=== PATIENT | male | born 1965 | race Caucasian/White ===

== ENCOUNTER 2022-12-28 20:55 | Inpatient (IN) | payer BC, SELFPAY ==
--- NOTE | 2022-12-28 20:56 | XR_ITS ---
PROCEDURE INFORMATION: Exam: XR Chest Exam date and time: 12/28/2022 9:47 PM Age: 57 years old Clinical indication: Other: Nstemi TECHNIQUE: Imaging protocol: Radiologic exam of the chest. Views: 1 view. Total images: 1 COMPARISON: No relevant prior studies available. FINDINGS: Lungs: Unremarkable. No consolidation. No pulmonary vascular congestion or edema. Pleural spaces: Unremarkable. No pleural effusion. No pneumothorax. Heart/Mediastinum: Unremarkable. No cardiomegaly. No mediastinal widening or hilar enlargement. Bones/joints: Unremarkable. IMPRESSION: No radiographically acute cardiopulmonary process.
--- NOTE | 2022-12-28 21:08 | ECG_ITS ---
APPROVED REPORT Exam: Resting ECG HR:55 bpm ECG Measurements Heart Rate 55 AXES PA 179 P 46 QRSd 96 QRS 7 QT 419 T 3 QTc 409 Conclusion SINUS BRADYCARDIA O/w normal ecg ABNORMAL ECG UNCONFIRMED REPORT Electronically signed by : Endy Marquez MD 12/29/2022 20:21:05
[2022-12-28 21:13] VITALS: BMI 30.7
[2022-12-28 21:20] VITALS: BP 89/46; PULSE 59; RESP 18; O2SAT 95
[2022-12-28 22:00] VITALS: BP 99/50; PULSE 53; RESP 18; O2SAT 97
--- NOTE | 2022-12-28 22:09 | EXP.HP ---
History of Present Illness *Admission Date: 12/28/22 *Reason for visit:: NSTEMI *History of present illness: 57 year old male pt presented to [facility] as a direct transfer from [facility] for NSTEMI. PMHX of HTN, BPH, tobacco abuse, and alcohol use. Pt reports he smokes alot and drinks more than a [address] Murphy consulted hospitalist service for admission. I admitted the pt to the step down unit. I also spoke with Dr. Hernandez at [facility] ED and informed him that I accepted the pt to the hospitalist service and he was to be admitted as step down. He arrives from [facility] ED via EMS to the medical floor. He is alert and oriented x 4. He denies any current chest pain but reports fatigue. He states his CP started yesterday. The CP radiated into his left shoulder and was associated with feeling warmth. He states his CP went away but return this afternoon and was radiating into left shoulder and down into his left hand. He also reports his left hand going numb. The initial EKG revealed t wave inversions in leads three and v1. The pt reports use of cialis daily. Prior to transferring to [facility] he was given ASA 324, 180mg Brilinta, and 80mg of Lovenox. He also received morphine prior to leaving. Upon arrival to [facility] he is hypotensive and in sinus bradycardia with t wave inversion in the same leads. I consulted Dr. Murphy upon pt arrival. He will receive fluid hydration overnight, cardiac monitoring and one troponin. If pt develops CP overnight I will consult Dr. Murphy and obtain a stat EKG. [facility] Disclaimer: The information contained in this section may have been updated after the patient was seen, as this information can be updated by other users. Medical History (Updated 12/28/22 @ 22:23 by REINA Venegas) No significant past medical history Family History (Updated 12/28/22 @ 21:41 by Linda Mata RN) Colon cancer Family/Other Lung cancer Mother Social History (Updated 12/28/22 @ 21:44 by Linda Mata RN) Smoking Status: Current every day smoker tobacco type: cigarettes packs per day: 2 years smoked: 40 quit status: not considering quitting alcohol intake: current current occupational status: employed Travel in the last 8 weeks: None household members: none lives independently: No marital status: number of children: 0 service: No current occupational exposures/hazards: Yes (transport hazmat) Review of Systems *Cardiovascular Cardiovascular: Reports chest pain *Respiratory Respiratory: Reports system reviewed and no additional complaints, except as documented *Gastrointestinal Gastrointestinal: Reports system reviewed and no additional complaints, except as documented *Genitourinary Genitourinary: Reports system reviewed and no additional complaints, except as documented *Musculoskeletal Musculoskeletal: Reports system reviewed and no additional complaints, except as documented *Neurologic Neurologic: Reports system reviewed and no additional complaints, except as documented Meds Home Medications and Allergies Home Medications Medication Instructions Recorded Confirmed Type diclofenac sodium 75 mg 75 mg PO DAILY 12/28/22 12/28/22 History tablet,delayed release losartan 100 mg tablet 100 mg PO DAILY 12/28/22 12/28/22 History tadalafil 5 mg tablet 5 mg PO DAILY 12/28/22 12/28/22 History New Prescriptions to Start Prescriptions: Allergies Allergy/AdvReac Type Severity Reaction Status Date / Time No Known Allergies Allergy Verified 12/28/22 22:01 Exam Data for Last 24 hours Vital signs and Labs for Last 24 Hours: Pulse Resp BP Pulse Ox O2 Del Method 59 L 18 89/46 L 95 Room Air 12/28/22 21:20 12/28/22 21:20 12/28/22 21:20 12/28/22 21:20 12/28/22 21:20 I & O for Last 24 hours: Intake & Output 12/25/22 12/26/22 12/27/22 12/28/22 23:59 23:59 23:59 23:59 Weight 88.904 kg Constitutional Constitut
[2022-12-28 23:01] LABS: Basophils # 0.1 K/mm3 (0-0.2); Basophils % 0.6 % (0.1-2.0); Eosinophils # 0.3 K/mm3 (0.0-0.4); Hematocrit 45.5 % (42.0-52.0); Hemoglobin 15.1 g/dL (14.1-18.0); Lymphocytes # 2.5 K/mm3 (0.7-4.5); Mean Corpuscular HGB Conc 33.2 g/dL (31.8-35.4); Mean Corpuscular Hemoglobin 37.9 pg (27.0-31.2); Mean Corpuscular Volume 114.2 fl (80-94); Mean Platelet Volume 8.5 fl (7.4-10.4); Monocytes # 0.6 K/mm3 (0.1-1.0); Monocytes % 6.1 % (1.7-9.3); Neutrophils # 6.6 K/mm3 (1.8-7.8); Neutrophils % 65.3 % (37.0-80.0); Platelet Count 133 K/mm3 (142-424); Red Blood Count 3.99 M/mm3 (4.60-6.20); Red Cell Distribution Width 13.1 % (11.5-17.5); White Blood Count 10.2 K/mm3 (4.8-10.8)
[2022-12-28 23:09] LABS: Alanine Aminotransferase 83 U/L (12-78); Albumin Level 3.5 g/dl (3.5-5.0); Albumin/Globulin Ratio 1.3 (1.1-1.8); Alkaline Phosphatase 86 U/L (38-126); Aspartate Amino Transferase 203 U/L (17-59); Bilirubin,Total 0.9 mg/dl (0.2-1.3); Blood Urea Nitrogen 14 mg/dl (9-20); Carbon Dioxide 22 mmol/L (22.0-30.0); Chloride 105 mmol/L (98-107); Chol/HDL Ratio 3.8 (1-3.5); Cholesterol 156 mg/dl (140-200); Creatinine Clearance Estimated 150 mL/min (50-200); Estimated Glomerular Filt Rate 117 ml/min (>60); GFR (African American) 142 ML/MIN (>60); Globulin 2.7 g/dL (1.3-3.2); Glucose 118 mg/dl (74-100); HDL Cholesterol 41 mg/dl (40-60); Magnesium 1.7 mg/dl (1.6-2.3); Sodium 133 mmol/L (136-145); Total Protein,Serum 6.2 g/dl (6.3-8.2); Triglycerides 148 mg/dl (30-150); VLDL Cholesterol 30 mg/dL (0-40)
[2022-12-29] VITALS (27 sets, daily range): BP systolic 88–139; BP diastolic 46–75; PULSE 45–71; RESP 16–22; TEMP 36.5–36.9; O2SAT 91–98; BMI 30.7
--- NOTE | 2022-12-29 02:45 | PC.NURSE ---
500ml LR infused, BP 92/58. Yusuf DIRECTOR OF STUDENT AID states to give rest of 1 L LR at this time.
--- NOTE | 2022-12-29 06:14 | CA_ITS ---
APPROVED REPORT EXAM: Comprehensive 2D, Doppler, and color-flow Echocardiogram Java Sql Developer: Eileen Martínez RDCS Ht: 196 ft 6 in Wt: 196lbs BSA: 26.50 BP: 89/46 mmHg Indications: CP,ABN EKG,NSTEMI 2D Dimensions LVOT 1.97 cm (M/F) 1.5-2.5 M-Mode Dimensions RVDd 2.96 cm (0.9-2.6) LA Diam 4.00 cm (1.9-4.0) LVDd 4.64 cm (3.5-5.7) Ao Diam 2.97 cm (2.0-3.7) LVDs 2.62 cm (3.5-5.7) IVSd 1.18 cm (0.6-1.1) PWd 0.95 cm (0.6-1.1) EF (Teich) 74.70% FS 43.50% EDV (Teich) 99.30 mL TAPSE 3.09 (<1.7) ESV (Teich) 25.10 mL LV Diastology E Decel Time 220.00 (160-240 msec) E/A Ratio 1.2 MED E' 7.60 (< 7 cm/sec) E'/MED E' Ratio 11.24 (>14) LAT E' 9.80 (<10 cm/sec) E/LAT E' Ratio 8.71 (>14) Mitral Valve MV E Max Kerwin. 85.00 (40-130 cm/s) MV A Velocity 70.00 (40-130 cm/s) E/A Ratio 1.22 MV Decel. Time 220.00 (160-240 ms) MV PHT 64.00 ms Left Ventricle The left ventricle is normal size. The left ventricular systolic function is normal. The left ventricular ejection fraction is within the normal range. There is normal left ventricular wall thickness. There is normal LV segmental wall motion. The left ventricular diastolic function is normal. LVEF is 55%. Right Ventricle Right ventricle is mildly dilated. The right ventricular systolic function is normal. Atria The left atrium size is normal. The right atrium size is normal. The interatrial septum is not well visualized. Aortic Valve The aortic valve is mildly thickened. There is no aortic valvular stenosis. No aortic regurgitation is present. Mitral Valve The mitral valve is normal in structure. No evidence of mitral valve stenosis. Trace mitral regurgitation. Tricuspid Valve The tricuspid valve leaflets are thin and pliable. Trace tricuspid regurgitation. There is insufficient TR jet to estimate RVSP. Pulmonic Valve The pulmonary valve is normal in structure. Trace pulmonic regurgitation. Great Vessels The aortic root is normal in size. The ascending aorta is normal in size. IVC is normal in size and collapses >50% with inspiration. Pericardium There is no pericardial effusion. Other Information Study Quality: Fair Conclusion Biventricular systolic function. Mildly dilated RV. No significant valvular stenosis or regurgitation. Electronically signed by : Kita Terrazas MD 12/29/2022 21:45:24
--- NOTE | 2022-12-29 06:23 | PC.NURSE ---
500ml LR infused, BP 92/58. Yusuf SENIOR BUSINESS DEVELOPMENT ANALYST states to give rest of 1 L LR at this time.
--- NOTE | 2022-12-29 06:41 | PC.NURSE ---
Pt states chest pressure has remained the same t/o the night rating it at a 4/10. Pt states he becomes SOA only when he feels like he is about to fall asleep. Spo2 1 L nc applied for pt comfort. No other c/o voiced to staff
[2022-12-29 06:46] LABS: Chloride 106 mmol/L (98-107)
[2022-12-29 06:47] LABS: Sodium 133 mmol/L (136-145)
[2022-12-29 06:49] LABS: Alanine Aminotransferase 83 U/L (12-78); Alkaline Phosphatase 74 U/L (38-126); Aspartate Amino Transferase 216 U/L (17-59); Bilirubin,Total 1.2 mg/dl (0.2-1.3); Blood Urea Nitrogen 12 mg/dl (9-20); Creatinine Clearance Estimated 175 mL/min (50-200); Estimated Glomerular Filt Rate 140 ml/min (>60); GFR (African American) 169 ML/MIN (>60)
[2022-12-29 06:50] LABS: Albumin Level 3.5 g/dl (3.5-5.0); Albumin/Globulin Ratio 1.3 (1.1-1.8); Basophils # 0.1 K/mm3 (0-0.2); Basophils % 0.8 % (0.1-2.0); Calcium 7.8 mg/dl (8.4-10.2); Carbon Dioxide 22 mmol/L (22.0-30.0); Eosinophils # 0.3 K/mm3 (0.0-0.4); Eosinophils % 3.8 % (0.1-12.0); Globulin 2.7 g/dL (1.3-3.2); Glucose 131 mg/dl (74-100); Hematocrit 44.7 % (42.0-52.0); Lymphocytes # 1.9 K/mm3 (0.7-4.5); Lymphocytes % 25.3 % (10-50); Magnesium 1.9 mg/dl (1.6-2.3); Mean Corpuscular HGB Conc 33.7 g/dL (31.8-35.4); Mean Corpuscular Hemoglobin 37.8 pg (27.0-31.2); Mean Corpuscular Volume 112.1 fl (80-94); Mean Platelet Volume 8.3 fl (7.4-10.4); Monocytes # 0.6 K/mm3 (0.1-1.0); Monocytes % 8.1 % (1.7-9.3); Neutrophils # 4.7 K/mm3 (1.8-7.8); Platelet Count 119 K/mm3 (142-424); Red Blood Count 3.98 M/mm3 (4.60-6.20); Red Cell Distribution Width 13.1 % (11.5-17.5); Total Protein,Serum 6.2 g/dl (6.3-8.2); White Blood Count 7.5 K/mm3 (4.8-10.8)
--- NOTE | 2022-12-29 07:13 | IR_ITS ---
APPROVED REPORT Patient Location: Outpatient Gardening Manager: MARIANNE Wagner RT (R) PROCEDURES Left heart catheterization Left ventriculogram Selective coronary angiogram Mechanical thrombectomy to the posterior lateral ventricular branch off the right coronary artery Drug-eluting stent deployment to the mid dominant right coronary artery Drug-eluting stent deployment to the ostial proximal posterior lateral ventricular branch INDICATION Coronary artery disease, Acute non-ST elevation myocardial infarction of the posterior lateral ventricular branch, Large thrombus burden in the posterior lateral ventricular branch Informed consent was obtained prior to the procedure. COMPLICATIONS None Estimated Blood Loss: Less than 10 mls TECHNIQUE One percent lidocaine used to anesthetize the right anterior aspect of the wrist. The right radial artery was accessed via the Seldinger technique. A 6 [place] sheath was placed in the right radial artery. 2.5 mg of Verapamil, 800 mcg of nitroglycerin, 1mg Lidocaine and 5000 U Heparin were given through the arterial sheath. The papa catheter was also used to perform left heart catheterization, left ventriculogram and selective coronary angiogram. At the end the diagnostic angiogram therapeutic heparin was administered giving a therapeutic ACT and the guide catheter was placed in the right coronary artery followed by Choice PT extra-support wire being placed into the posterior lateral branch. A 2.5 x 12 mm balloon was used to predilate the stenosis. A 3 mm x 30 mm [place] frontier stent was deployed at 18 jeanna reducing the stenosis. LARRY-3 flow was not restored and a thrombus was identified distally. A [employer] mechanical aspiration catheter was advanced and a large amount of thrombus was retrieved from the posterior branch. Following this 10 cc of intracoronary Integrilin was administered along with 800 cc of intracoronary nitroglycerin. A 3.5 x 15 mm [place] frontier stent was deployed at 24 jeanna in the [place] right coronary artery extending into the proximal posterior lateral branch. The stent overlap the posterior lateral branch. Following injection ALRRY-3 flow was restored. A fresh 3.5 x 12 mm balloon was then deployed at 20 jeanna up and down the 3 mm stent to further post dilate. Additional 600 mcg of intracoronary artery nitroglycerin was administered. At the end of the procedure there was wide patency of the posterior lateral branch. LARRY 0 flow was present at the beginning of the procedure with LARRY-3 flow at the end of the procedure in the posterior lateral branch. LARRY-3 flow was present before and after the procedure in the right coronary artery. At the end of procedure the apparatus was removed the sheath was removed and hemostasis was achieved using TR banding patient was transferred to the postop holding area in stable condition ANGIOGRAPHIC RESULTS The left main artery Normal The left anterior descending artery Has a proximal 40 followed by an additional 40 to 50% stenosis with mid vessel 10% and 20% stenoses The circumflex artery A small to moderate-sized ramus intermedius has an ostial 90% stenosis. This originates off the distal left main artery. Circumflex artery is nondominant yet still large vessel and has diffuse 10 to 20% stenosis The right coronary artery Is a large dominant vessel and has a proximal 20 to 30% stenosis mid vessel 20% stenoses and a concentric 50% stenosis followed by thrombosis and occlusion of the large posterior lateral branch. The posterior descending artery is a large 3.5 mm vessel and has a proximal 40 to 50% concentric stenosis The STINSON ventriculogram reveals Preserved at 60% The left ventricular end-diastolic pressure Elevated at 20 to 25 mmHg IMPRESSION Coronary disease as descri
--- NOTE | 2022-12-29 07:41 | PC.NURSE ---
pt going off the floor to Fermenting Cellars Receiver at this time.
--- NOTE | 2022-12-29 08:16 | EXP.ACUTE.PN ---
Subjective *Date: 12/29/22 *Time: 12:31 Interval history: Patient seen after left heart cath. Chest pain-free at this time. In bedside chair. Stable on room air. No nausea or vomiting. No diarrhea. Afebrile. Medical Exam Vital signs and Labs for Last 24 Hours: Vital Signs Temp Pulse Pulse Resp BP Pulse Ox O2 Del Method 12/29/22 07:25 50 L 18 95/59 L 97 Nasal Cannula 12/29/22 07:25 50 L 18 97 Nasal Cannula 12/29/22 07:25 50 L 12/29/22 06:41 Nasal Cannula 12/29/22 06:00 45 L 18 103/62 L 95 Nasal Cannula 12/29/22 05:00 Nasal Cannula 12/29/22 04:00 60 12/29/22 04:00 98.2 F 54 L 22 105/72 L 97 Nasal Cannula 12/29/22 02:37 Room Air 12/29/22 00:57 Nasal Cannula 12/29/22 00:00 60 12/29/22 02:00 55 L 16 92/57 L 96 Nasal Cannula 12/29/22 00:00 98.4 F 54 L 18 112/62 98 Nasal Cannula 12/28/22 22:00 53 L 18 99/50 L 97 Room Air 12/28/22 22:58 Room Air 12/29/22 00:39 48 L 96 Room Air 12/28/22 21:20 59 L 18 89/46 L 95 Room Air O2 Flow Rate 12/29/22 07:25 1 12/29/22 07:25 1 12/29/22 07:25 12/29/22 06:41 1 12/29/22 06:00 1 12/29/22 05:00 1 12/29/22 04:00 12/29/22 04:00 1 12/29/22 02:37 12/29/22 00:57 1 12/29/22 00:00 12/29/22 02:00 1 12/29/22 00:00 2 12/28/22 22:00 12/28/22 22:58 12/29/22 00:39 12/28/22 21:20 Intake and Output 12/28/22 12/29/22 12/29/22 23:59 07:59 15:59 Intake Total 1313 / 1313 Output Total 600 / 600 Balance 713 / 713 Intake: Intake, Total IV Amount 1313 / 1313 Lactated Ringers 1000ML 1,000 324 / 324 ml @ 100 mls/hr IV .Q10H [facility] Rx #:[id number] Lactated Ringers 1000ML 500 ml 989 / 989 @ 250 mls/hr IV .Q2H [facility] Rx#: [id number] Output: Output, Urine Amount 600 / 600 Other: Number of Unmeasured Voids 1 Weight 88.904 kg 88.904 kg Patient Weight 12/29/22 23:59 Weight 88.904 kg Laboratory Results - last 24 hr 12/28/22 22:40: WBC 10.2, RBC 3.99 L, Hgb 15.1, Hct 45.5, MCV 114.2 H, MCH 37.9 H, MCHC 33.2, RDW 13.1, Plt Count 133 L, MPV 8.5, Neut % (Auto) 65.3, Lymph % (Auto) 25.0, [place] % (Auto) 6.1, Eos % (Auto) 3.0, Baso % (Auto) 0.6, Neut # (Auto) 6.6, Lymph # (Auto) 2.5, [place] # (Auto) 0.6, Eos # (Auto) 0.3, Baso # (Auto) 0.1, Sodium 133 L, Potassium 4.0, Chloride 105, Carbon Dioxide 22, Anion Gap 10.0, BUN 14, Creatinine 0.70, Estimated Creat Clear 150, Estimated GFR 117, Est GFR ( Amer) 142, Glucose 118 H, Calcium 8.0 L, Magnesium 1.7, Total Bilirubin 0.9, AST 203 H, ALT 83 H, Alkaline Phosphatase 86, Troponin I 21.90 H, Total Protein 6.2 L, Albumin 3.5, Globulin 2.7, Albumin/Globulin Ratio 1.3, Triglycerides 148, Cholesterol 156, LDL Cholesterol Direct 97.40 L, VLDL Cholesterol 30, HDL Cholesterol 41, Cholesterol/HDL Ratio 3.8 H 12/29/22 02:28: Troponin I 25.90 H 12/29/22 06:29: WBC 7.5 D, RBC 3.98 L, Hgb 15.0, Hct 44.7, MCV 112.1 H, MCH 37.8 H, MCHC 33.7, RDW 13.1, Plt Count 119 L, MPV 8.3, Neut % (Auto) 62.0, Lymph % (Auto) 25.3, [place] % (Auto) 8.1, Eos % (Auto) 3.8, Baso % (Auto) 0.8, Neut # (Auto) 4.7, Lymph # (Auto) 1.9, [place] # (Auto) 0.6, Eos # (Auto) 0.3, Baso # (Auto) 0.1, Sodium 133 L, Potassium 4.0, Chloride 106, Carbon Dioxide 22, Anion Gap 9.0, BUN 12, Creatinine 0.60 L, Estimated Creat Clear 175, Estimated GFR 140, Est GFR ( Amer) 169, Glucose 131 H, Calcium 7.8 L, Magnesium 1.9 D, Total Bilirubin 1.2, AST 216 H, ALT 83 H, Alkaline Phosphatase 74, Total Protein 6.2 L, Albumin 3.5, Globulin 2.7, Albumin/Globulin Ratio 1.3 I & O for Labs for Last 24 Hours: Intake & Output 12/26/22 12/27/22 12/28/22 12/29/22 23:59 23:59 23:59 23:59 Intake Total 1313 / 1313 Output Total 600 / 600 Balance 713 / 713 Weight 88.904 kg 88.904 kg Constitutional: Present no acute distress, obese and chronically ill appearing Comment:: Appears much older than stated
--- NOTE | 2022-12-29 08:48 | EXP.CARD.CON ---
History of Present Illness History of Present Illness Consult date: 12/29/22 Requesting physician: Jules Green Consult reason: chest pain Chief complaint: NSTEMI Additional Medical History:: 1. Tobacco use 2. Alcohol use 3. Non-STEMI, 12/28/2022 with elevated troponin in the 22-25 range 4. Hypertension 5. BPH 6. Prior history of gastric ulcer History of present illness: 57 year old male pt presented to [facility] as a direct transfer from [facility] for NSTEMI. PMHX of HTN, BPH, tobacco abuse, and alcohol use. Pt reports he smokes alot and drinks more than a [address] Murphy consulted hospitalist service for admission. I admitted the pt to the step down unit. I also spoke with Dr. Hernandez at [facility] ED and informed him that I accepted the pt to the hospitalist service and he was to be admitted as step down. He arrives from [facility] ED via EMS to the medical floor. He is alert and oriented x 4. He denies any current chest pain but reports fatigue. He states his CP started yesterday. The CP radiated into his left shoulder and was associated with feeling warmth. He states his CP went away but return this afternoon and was radiating into left shoulder and down into his left hand. He also reports his left hand going numb. The initial EKG revealed t wave inversions in leads three and v1. The pt reports use of cialis daily. Prior to transferring to [facility] he was given ASA 324, 180mg Brilinta, and 80mg of Lovenox. He also received morphine prior to leaving. Upon arrival to [facility] he is hypotensive and in sinus bradycardia with t wave inversion in the same leads. I consulted Dr. Murphy upon pt arrival. He will receive fluid hydration overnight, cardiac monitoring and one troponin. If pt develops CP overnight I will consult Dr. Murphy and obtain a stat EKG. The above per REINA Venegas with the Hospitalist service. The above events confirmed with the patient. Chest pain and left arm pain have improved. Patient is currently being assisted to the wheelchair for transportation down to the cardiac Central Control Room Operator for cardiac catheterization. [facility] Disclaimer: The information contained in this section may have been updated after the patient was seen, as this information can be updated by other users. Medical History (Updated 12/29/22 @ 08:52 by KADE Walters) No significant past medical history Family History (Updated 12/28/22 @ 21:41 by Linda Mata, CANDICE) Colon cancer Family/Other Lung cancer Mother Social History (Updated 12/28/22 @ 21:44 by Linda Mata RN) Smoking Status: Current every day smoker tobacco type: cigarettes packs per day: 2 years smoked: 40 quit status: not considering quitting alcohol intake: current current occupational status: employed Travel in the last 8 weeks: None household members: none lives independently: No marital status: number of children: 0 service: No current occupational exposures/hazards: Yes (transport hazmat) Review of Systems Review of Systems Review of systems:: pertinent systems reviewed and negative unless documented below *Cardiovascular Cardiovascular: Reports chest pain *Gastrointestinal Gastrointestinal: Denies vomiting *Neurologic Neurologic: Reports system reviewed and no additional complaints, except as documented Exam Data for Last 24 hours Vital signs and Labs for Last 24 Hours: Temp Pulse Resp BP Pulse Ox O2 Del Method O2 Flow Rate 98.2 F 50 L 18 95/59 L 97 Nasal Cannula 1 12/29/22 04:00 12/29/22 07:25 12/29/22 07:25 12/29/22 07:25 12/29/22 07:25 12/29/22 07:25 12/29/22 07:25 Laboratory Results - last 24 hr 12/28/22 22:40: WBC 10.2, RBC 3.99 L, Hgb 15.1, Hct 45.5, MCV 114.2 H, MCH 37.9 H, MCHC 33.2, RDW 13.1, Plt Count 133 L, MPV 8.5, Neut % (Auto) 65.3, Lymph % (Auto) 25.0, [place] % (Auto) 6.1, Eos % (Auto) 3.0, Baso % (Auto) 0.6, Neut # (Auto) 6.6, Lymph # (Auto) 2.5, [place] # (Auto) 0.6, Eos
--- NOTE | 2022-12-29 08:59 | HMH.PHAINT1 ---
Pharmacy Intervention Comments: HOME MEDICATION LIST VERIFIED USING LIST FROM OUTPATIENT PHARMACY
[2022-12-29 09:02] LABS: CATHL Activated Clotting Time > 400 SEC (74-125)
--- NOTE | 2022-12-29 09:14 | PC.NURSE ---
right radial wrist band in place, no drainage noted. pt denies pain at this time. Integrillin drip infusing at 14.2 ml/hr upon arrival to unit.
--- NOTE | 2022-12-29 09:14 | PC.NURSE ---
pt returned from [employer] at this time.
--- NOTE | 2022-12-29 10:36 | PC.NURSE ---
called and spoke with Elisa in lab support tech regarding advancing pt's diet order. cardiac tray ordered for patient.
[2022-12-30] VITALS: BP 125/73; PULSE 60; PULSE 68; RESP 20; TEMP 36.9; O2SAT 93
--- NOTE | 2022-12-30 00:40 | PC.NURSE ---
Noted upon assessment integrelin gtt not stocked in [employer]. Notified devulcanizer charger and houseperson, who notified RN to call cardiology to verify if gtt needed to continue. mouna Ortega, and this RN examined order to verify if it stated 18 hrs in the order comments. Dr. Murphy paged and notified no med available at this time. Dr. Murphy stated med needed to be administered for 18 hours. After call with Dr. Murphy, houseperson found Integrelin, this RN administered. Pt denies any chest pain or discomfort at this time, resting comfortably upon assessment, HR 64.
[2022-12-30 02:00] VITALS: BP 148/84; PULSE 66; RESP 20; O2SAT 94
[2022-12-30 04:00] VITALS: BP 130/84; PULSE 66; PULSE 70; RESP 20; TEMP 36.8; O2SAT 94; BMI 29.4
[2022-12-30 06:00] VITALS: BP 128/80; PULSE 62; RESP 20; O2SAT 94
--- NOTE | 2022-12-30 06:23 | PC.NURSE ---
Addendum entered by Gladys Bernardo RN 12/30/22 06:26: R radial cath site C/D/I upon assessment. Tegaderm and gauze still applied. Original Note: Shift Summary Note: Pt Aox4, minimal assistance, slept throughout most of shift. Pt arousable to name and could answer assessment questions.Denies chest pain, discomfort, numbness/tingling upon assessment. IVs maintained, LR @ 100 mL/hr continuous and integrelin gtt administered until 314. VSS, NELSON or complaints at this time.
[2022-12-30 06:30] LABS: Chloride 107 mmol/L (98-107)
[2022-12-30 06:31] LABS: Basophils # 0.1 K/mm3 (0-0.2); Basophils % 0.6 % (0.1-2.0); Eosinophils # 0.3 K/mm3 (0.0-0.4); Eosinophils % 3.3 % (0.1-12.0); Hemoglobin 15.1 g/dL (14.1-18.0); Lymphocytes # 2.1 K/mm3 (0.7-4.5); Lymphocytes % 26.7 % (10-50); Mean Corpuscular HGB Conc 34.4 g/dL (31.8-35.4); Mean Corpuscular Hemoglobin 38.2 pg (27.0-31.2); Mean Platelet Volume 8.9 fl (7.4-10.4); Monocytes # 0.6 K/mm3 (0.1-1.0); Monocytes % 6.9 % (1.7-9.3); Neutrophils # 4.9 K/mm3 (1.8-7.8); Neutrophils % 62.6 % (37.0-80.0); Platelet Count 122 K/mm3 (142-424); Potassium 3.9 mmoL/L (3.5-5.1); Red Blood Count 3.96 M/mm3 (4.60-6.20); Sodium 136 mmol/L (136-145); White Blood Count 7.9 K/mm3 (4.8-10.8)
[2022-12-30 06:33] LABS: Alanine Aminotransferase 64 U/L (12-78); Alkaline Phosphatase 70 U/L (38-126); Anion Gap 5.9 mEq/L (5-15); Aspartate Amino Transferase 129 U/L (17-59); Bilirubin,Total 0.8 mg/dl (0.2-1.3); Blood Urea Nitrogen 12 mg/dl (9-20); Carbon Dioxide 27 mmol/L (22.0-30.0); Creatinine Clearance Estimated 111 mL/min (50-200); Estimated Glomerular Filt Rate 88 ml/min (>60); GFR (African American) 106 ML/MIN (>60)
[2022-12-30 06:34] LABS: Albumin Level 3.4 g/dl (3.5-5.0); Albumin/Globulin Ratio 1.2 (1.1-1.8); Globulin 2.8 g/dL (1.3-3.2); Glucose 112 mg/dl (74-100); Total Protein,Serum 6.2 g/dl (6.3-8.2)
[2022-12-30 08:00] VITALS: BP 130/69; PULSE 72; RESP 18; TEMP 36.4; O2SAT 96
[2022-12-30 10:00] VITALS: BP 146/90; PULSE 66; RESP 18; O2SAT 98
--- NOTE | 2022-12-30 10:01 | EXP.CARD.PN ---
Subjective Subjective Date: 12/30/22 Time: 10:02 Principal diagnosis: NSTEMI Interval history: 57-year-old white male in bed in no acute distress. No complaints overnight. Anxious to go home. He did speak with his employer and he may need a stress test prior to returning to work. He will find out and let us know. Exam Data for Last 24 hours Vital signs and Labs for Last 24 Hours: Temp Pulse Resp BP Pulse Ox O2 Del Method O2 Flow Rate 97.6 F 72 18 130/69 96 Room Air 1 12/30/22 08:00 12/30/22 08:00 12/30/22 08:00 12/30/22 08:00 12/30/22 08:00 12/30/22 08:00 12/29/22 07:25 Laboratory Results - last 24 hr 12/30/22 05:49: WBC 7.9, RBC 3.96 L, Hgb 15.1, Hct 44.0, MCV 111.0 H, MCH 38.2 H, MCHC 34.4, RDW 13.0, Plt Count 122 L, MPV 8.9, Neut % (Auto) 62.6, Lymph % (Auto) 26.7, [place] % (Auto) 6.9, Eos % (Auto) 3.3, Baso % (Auto) 0.6, Neut # (Auto) 4.9, Lymph # (Auto) 2.1, [place] # (Auto) 0.6, Eos # (Auto) 0.3, Baso # (Auto) 0.1, Sodium 136, Potassium 3.9, Chloride 107, Carbon Dioxide 27, Anion Gap 5.9, BUN 12, Creatinine 0.90 D, Estimated Creat Clear 111, Estimated GFR 88, Est GFR ( Amer) 106 D, Glucose 112 H, Calcium 8.0 L, Magnesium 2.0, Total Bilirubin 0.8, AST 129 H D, ALT 64, Alkaline Phosphatase 70, Total Protein 6.2 L, Albumin 3.4 L, Globulin 2.8, Albumin/Globulin Ratio 1.2 I & O for Last 24 hours: Intake & Output 12/27/22 12/28/22 12/29/22 12/30/22 11:59 11:59 11:59 11:59 Intake Total 1313 / 1313 3594 / 3594 Output Total 1100 / 1100 2800 / 2800 Balance 213 / 213 794 / 794 Weight 196 lb 187 lb 6.287 oz Constitutional Constitutional: no acute distress *Routine Respiratory Exam Respiratory: Present CTA bilaterally *Routine Cardiovascular Exam Cardiovascular: Present RRR *Routine Extremities Exam Extremities: Absent edema Progress Note: A&P Assessment and plan (1) NSTEMI (non-ST elevated myocardial infarction): Status: Acute (2) HTN (hypertension): Status: Acute (3) BPH (benign prostatic hyperplasia): Status: Acute (4) Smoking: Status: Acute (5) Alcohol abuse: Status: Acute Assessment and Plan Assessment and Plan for All Diagnoses:: 1. Non-STEMI LARY to RCA/PLVB. Persistent mod stenosis of LAD, ostial 90% in small ramus. EF 60%. LVEDP of 20-25 mm Hg Continue aspirin, Brilinta Echo shows normal biventricular systolic function with mildly dilated RV no significant valve disease 2. Hypertension Resume losartan Try to add low dose metoprolol for NSTEMI if BP allows 3. Tobacco use, cessation recommended 4. History of alcohol use, watch for withdrawal symptoms Elevated LFTs, improving Macrocytosis without anemia 5. Dyslipidemia with LDL 97 Start statin therapy 6. Hypocalcemia stable at 8.0 check PTH 7. Hyponatremia, mild resolved Stable from a cardiac standpoint for discharge home. Home medication recommendations: Aspirin 81 mg daily Brilinta 90 mg twice daily Resume home dose losartan 100 mg daily Add metoprolol succinate 25 mg 1/2 tablet daily as long as blood pressure allows Add atorvastatin Lipitor 10 mg daily Follow-up in our office in 1 week. 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 Monitor LFTs closely due to alcohol use and beginning statin therapy
--- NOTE | 2022-12-30 11:41 | HMH.PHAINT1 ---
Pharmacy Intervention Comments: DISCHARGE MEDICATION COUNSELING PROVIDED. DISCUSSED STARTING THE FOLLOWING: -ATORVASTATIN (FOR CHOLESTEROL, AT BEDTIME, MUSCLE PAIN/WEAKNESS POSSIBLE) -ASPIRIN (BLOOD THINNER, DAILY, TAKE WITH FOOD, UPSET STOMACH POSSIBLE, BLEED/BRUISE RISK/APPEARANCE) -METOPROLOL (FOR HR/BP, DAILY, DIZZINESS, LIGHTHEADEDNESS, FATIGUE, SLOWED HEART RATE, LOW BP, HEADACHE) -PLAVIX (BLOOD THINNER, DAILY, BLEED/BRUISE RISK/APPEARANCE, BUMP HEAD = GO TO ER TO RULE OUT HEAD BLEED). PATIENT VERBALIZED NO QUESTIONS AT THIS TIME.
--- NOTE | 2022-12-31 14:36 | CARE MANAGER ---
Contacted patient related to hospital discharge. He states he is feeling well. He has his new medications and is aware of follow up appointments. Denies questions or concerns. CANDICE Brock
== END 2022-12-30 12:28 | disposition home or self-care (01) | DRG 322 ==
PROVIDERS: Internal Medicine; Nurse Practitioner Critical Care Medicine; Physician Assistant; Admitting Provider Internal Medicine Adolescent Medicine; PCP Family Medicine; Visit Provider Internal Medicine Adolescent Medicine
PROC: 027135Z Dilation of Coronary Artery, Two Arteries with Two Drug-eluting Intraluminal Devices, Percutaneous Approach (ICD-10-PCS; principal; 2022-12-29 07:10)
DX: E87.1 Hypo-osmolality and hyponatremia (principal); I21.4 Non-ST elevation (NSTEMI) myocardial infarction; I10 Essential (primary) hypertension; N40.0 Benign prostatic hyperplasia without lower urinary tract symptoms; F10.10 Alcohol abuse, uncomplicated; F17.210 Nicotine dependence, cigarettes, uncomplicated; E83.51 Hypocalcemia; Z71.6 Tobacco abuse counseling; I25.10 Atherosclerotic heart disease of native coronary artery without angina pectoris
CPT/HCPCS: 36415; 71045; 80053; 80061; 83735; 83970; 84484; 85025; 85347; 92928; 92929; 93005; 93306; 93458; 99152; 99153; C1725; C1769; C1874; C9600; C9601; J1327; J1644; Q9967

== ENCOUNTER → 2023-01-06 13:38 | Outpatient (CLI) | payer BC, SELFPAY ==
[2023-01-06 14:12] LABS: Blood Urea Nitrogen 22 mg/dl (9-20); Estimated Glomerular Filt Rate 88 ml/min (>60); GFR (African American) 106 ML/MIN (>60)
[2023-01-06 14:29] LABS: Hematocrit 49.4 % (42.0-52.0); Hemoglobin 16.6 g/dL (14.1-18.0)
== END ==
PROVIDERS: PCP Family Medicine; Visit Provider Internal Medicine
DX: I21.4 Non-ST elevation (NSTEMI) myocardial infarction (principal); I10 Essential (primary) hypertension
CPT/HCPCS: 36415; 82565; 84520; 85014; 85018

== ENCOUNTER → 2023-01-15 12:11 | Outpatient (CLI) | payer BC, SELFPAY ==
--- NOTE | 2023-01-15 12:11 | NM_ITS ---
APPROVED REPORT Exam: Nuclear Stress Test Indication: soa...palpitiation Patient Location: Outpatient Stress Tech: Leidy Jaime MT Tech:Gladys Oseguera MARIANNE RT(R)(N) Ht: 5 ft 7 in Wt: 190 lbs HR: 64 bpm BP: 131/72 mmHg BSA: 1.98 m2 TID: 1.14 BMI: 29.7 History: soa..palpitations Procedure: Patient exercised on Linwood protocol 4:45 minutes and sec, resting heart rate 64 bpm, resting blood pressure 131/72 mmHg, with exercise maximum heart rate achived was 140 bpm which is 71 % of the maximum predicted heart rate and blood pressure was 165/71 mmHg. Test was stopped due to fatigue. Patient denied any complaint of chest pain. Patient has Average exercise capacity, achieved 10.1 METs of workload on treadmill, the blood pressure response to exercise was Normal. Cardiac Stress and Resting SPECT Images: Cardiac Stress and Resting SPECT images were obtained using technetium 99m Myoview 32.8 mCi stress and 10.53 mCi at rest. Resting and stress imaging in supine and prone positions demonstrate a large sized, moderate, predominantly fixed perfusion defect in the basal to mid inferior LV wall. There are regions of minimal reversibility surrounding the fixed defect. Gated imaging demonstrates mild reduction in global LV systolic function. There is severe hypokinesis of the basal inferior LV wall. LVEF is calculated at 47%. Conclusion: This was a suboptimal and nondiagnostic stress test as the patient could not achieve target HR. Large sized, moderate, predominantly fixed perfusion defect in the basal to mid inferior LV wall. There are regions of minimal reversibility surrounding the fixed defect. Gated imaging demonstrates mild reduction in global LV systolic function. There is severe hypokinesis of the basal inferior LV wall. LVEF is calculated at 47%. As the patient could not achieve target HR, further regions of ischemia, if present, could not be identified. Further evaluation with alternative diagnostic modalities is recommended, if clinically indicated. Electronically signed by : Kita Terrazas MD 01/26/2023 12:23:51
--- NOTE | 2023-01-15 14:08 | CA_ITS ---
APPROVED REPORT Exam: Exercise Treadmill Technologist: Leidy Nelson, Ht: 5 ft 7 in Wt: 186 lbs BSA: 1.96 m2 HR: 57 bpm BP: 135/72 mmHg Rhythm: NSR Medical History Medications: Aspirin,,,,, Losartan,,,,, Atorvastatin,,,,, Diclofenac Sodium,,,,, Metoprolol Succinate ER,,,,, Stress Test Details Test: Linwood HR Resting HR: 64 bpm Max Heart Rate (APMHR): 165 bpm Max HR Achieved: 117 bpm Target HR (85% APMHR): 140 bpm % of APMHR: 71 Recovery HR: 75 bpm HR response to stress: Blunted HR response to stress BP Resting BP: 131.0/73 mmHg Max BP: 162/76 mmHg Recovery BP: 116.0/59.0 mmHg BP response to stress: Normal blood pressure response to stress. ECG Resting ECG: NSR, early repolarazition changes, T wave abns in leads III,aVF. Stress EC.[address] depression Arrhythmia: None Clinical Exercise duration: 07:45 min Highest Stage Achieved: III Exercise capacity: 10.1 METs Stress ECG Conclusion This is a suboptimal stress test as the patient could not achieve target HR. The patient was able to exercise for a total of 7 minutes, 45 seconds. The achieved a total of 10.1 METS. He has average exercise capacity compared to age and sex matched peers. He has normal BP, but blunted HR, response to exercise. Max HR: 117 % of PM: 71% Max BP: 162/76 METs: 10.1 Test stopped due to: SOA, hip pain Symptoms: No CP. Arrhythmias/Ectopy: Occasional PACs ST-T Changes: 0.[address] depression Conclusion: Average exercise capacity. Suboptimal and nondiagnostic stress test as the patient could not achieve target HR. No significant ECG changes at peak stress at the level of HR achieved. Myoview images reported sepatately. Test Summary REST . . . . . . . Sitting REST . . . . . . . Standing REST 03:17 0.0 0.0 64 . 131/ 73 . . Stage 1 01:00 10.0 1.7 83 . . . . Stage 1 02:00 10.0 1.7 87 . . . . Stage 1 03:00 10.0 1.7 94 . 150/ 76 . . Stage 2 01:00 12.0 2.5 97 . . . . Stage 2 02:00 12.0 2.5 102 . . . . Stage 2 03:00 12.0 2.5 106 . 162/ 76 . . Stage 3 . . . . . . . Myoview Injected Stage 3 01:00 14.0 3.4 112 . . . . Stage 3 01:45 14.0 3.4 116 . . . Stop exercise at 07:45 RECOVERY 01:00 0.0 0.0 90 . . . . RECOVERY 02:00 0.0 0.0 85 . 96/ 46 . . RECOVERY 03:00 0.0 0.0 87 . 94/ 48 . . RECOVERY 04:00 0.0 0.0 75 . 84/ 51 . . RECOVERY 05:00 0.0 0.0 82 . 108/ 61 . . RECOVERY 06:00 0.0 0.0 84 . 108/ 61 . . RECOVERY 07:00 0.0 0.0 78 . 114/ 63 . . RECOVERY 08:00 0.0 0.0 75 . 114/ 63 . . RECOVERY 09:00 0.0 0.0 76 . 114/ 63 . . RECOVERY 10:00 0.0 0.0 85 . 114/ 63 . . RECOVERY 11:00 0.0 0.0 77 . 114/ 63 . . RECOVERY 12:00 0.0 0.0 76 . 116/ 59 . . RECOVERY 12:23 0.0 0.0 76 . 116/ 59 . . Electronically signed by : Kita Terrazas MD 01/26/2023 12:18:34
== END ==
LOC: RAD 12:11
PROVIDERS: PCP Family Medicine; Visit Provider Internal Medicine
DX: Z02.4 Encounter for examination for driving license (principal); E78.5 Hyperlipidemia, unspecified; I11.9 Hypertensive heart disease without heart failure; I21.4 Non-ST elevation (NSTEMI) myocardial infarction; I25.10 Atherosclerotic heart disease of native coronary artery without angina pectoris; Z95.5 Presence of coronary angioplasty implant and graft; F17.200 Nicotine dependence, unspecified, uncomplicated; F10.10 Alcohol abuse, uncomplicated
CPT/HCPCS: 78452; 93017; 93018; A9502

== ENCOUNTER → 2023-02-06 12:06 | Outpatient (CLI) | payer BC, SELFPAY ==
--- NOTE | 2023-02-06 | CA_ITS ---
APPROVED REPORT Exam: Pharmacologic Technologist: Jasmine Sullivan, Ht: 5 ft 7 in Wt: 189 lbs BSA: 1.97 m2 HR: 54 bpm BP: 106/65 mmHg Rhythm: sinus bradycardia, cannot R/O old inferior or anterior TX Medical History Medications: Aspirin,,,,, Losartan,,,,, Atorvastatin,,,,, Metoprolol Succinate,,,,, BRILINTA,,,,, Diclofenac Sodium,,,,, Cardiac Risk Factors: HTN, Hyperlipidemia, Smoking Stress Test Details Test: LEXISCAN HR Resting HR: 59 bpm Max Heart Rate (APMHR): 165 bpm Max HR Achieved: 80 bpm Target HR (85% APMHR): 140 bpm % of APMHR: 48 Recovery HR: 73 bpm BP Resting BP: 106/65 mmHg Max BP: 111/69 mmHg Recovery BP: 106.0/65.0 mmHg ECG Resting ECG: sinus bradycardia, cannot R/O old inferior or anterior TX Stress ECG: No significant ST changes Arrhythmia: None Clinical Exercise duration: 04:00 min Highest Stage Achieved: Stress ECG Conclusion During lexiscan pt experinced SOA, head discomfort. No CP noted. No arrhythmias noted. No significant ST changes. CONCLUSION: Unremarkable lexiscan stress. Myoview images reported separately. Test Summary REST . . . . . . . Sitting REST 04:34 . . 59 . 106/ 65 . . Stage 1 01:00 . . 71 . . . . Stage 2 01:00 . . 69 . 107/ 59 . . Stage 3 01:00 . . 67 . 97/ 61 . . Stage 4 01:00 . . 69 . 97/ 62 . Stop exercise at 04:00 RECOVERY 01:00 . . 70 . . . . RECOVERY 02:00 . . 77 . 106/ 65 . . RECOVERY 03:00 . . 67 . 111/ 69 . . RECOVERY 03:21 . . 71 . 111/ 69 . . Electronically signed by : Kita Terrazas MD 02/10/2023 10:11:18
--- NOTE | 2023-02-06 12:06 | NM_ITS ---
APPROVED REPORT Exam: Nuclear Stress Test Indication: soa..palpitaions..fatigue Patient Location: Outpatient Stress Tech: Jasmine MYERS Tech:Gladys OsegueraMARIANNE RT(R)(N) Ht: 5 ft 7 in Wt: 190 lbs HR: 59 bpm BP: 106/65 mmHg BSA: 1.98 m2 TID: 1.21 BMI: 29.7 History: soa..palpitaions..fatigue Procedure: Patient received 0.4 mg of intravenous Lexiscan, resting heart rate 59 bpm, resting blood pressure 106/65 mmHg, with Lexiscan maximum heart rate achieved was 80 bpm which is 85 % of the maximum predicted heart rate and blood pressure was 111/69 mmHg. With Lexiscan, patient denied any complaint of chest pain. Cardiac Stress and Resting SPECT Images: Cardiac Stress and Resting SPECT images were obtained using technetium 99m Myoview 32.9 mCi stress and 10.62 mCi at rest. Resting and stress imaging in supine and prone positions demonstrate a medium sized, moderate, fixed perfusion defect in the basal and mid inferior LV wall. There is increased transient ischemic dilatation ratio (TID 1.21), suggestive of possible multivessel disease or balanced ischemia. Gated imaging demonstrates mild reduction in global LV systolic function. There is severe hypokinesis of the basal inferior LV wall. Conclusion: Medium sized, moderate, fixed perfusion defect in the basal and mid inferior LV wall. No evidence of reversible ischemia. There is increased transient ischemic dilatation ratio (TID 1.21), suggestive of possible multivessel disease or balanced ischemia. Gated imaging demonstrates mild reduction in global LV systolic function. There is severe hypokinesis of the basal inferior LV wall. Electronically signed by : Kita Terrazas MD 02/10/2023 10:54:01
== END ==
PROVIDERS: PCP Family Medicine; Visit Provider Nurse Practitioner
DX: I21.4 Non-ST elevation (NSTEMI) myocardial infarction (principal); E78.5 Hyperlipidemia, unspecified; I11.9 Hypertensive heart disease without heart failure; I25.10 Atherosclerotic heart disease of native coronary artery without angina pectoris; Z95.5 Presence of coronary angioplasty implant and graft; F17.200 Nicotine dependence, unspecified, uncomplicated; Z02.4 Encounter for examination for driving license
CPT/HCPCS: 78452; 93017; 93018; A9502; J2785

== ENCOUNTER 2023-03-03 10:34 | Day surgery (SDC) | payer BC, SELFPAY ==
[2023-03-03] VITALS (11 sets, daily range): BP systolic 100–136; BP diastolic 46–82; PULSE 50–61; RESP 18–20; TEMP 36.6; O2SAT 93–100; BMI 29.9
--- NOTE | 2023-03-03 07:19 | IR_ITS ---
APPROVED REPORT Patient Location: Outpatient PROCEDURES Left heart catheterization Left ventriculogram Selective coronary angiogram Drug-eluting stent deployment to the left anterior descending artery Intravascular ultrasound following stenting to the LAD Drug-eluting stent deployment to the proximal circumflex artery INDICATION High risk abnormal Myoview, Angina pectoris, Abnormal echocardiogram with regional wall motion abnormality, History of myocardial infarction Informed consent was obtained prior to the procedure. COMPLICATIONS NONE Estimated Blood Loss: LESS THAN 10 ML TECHNIQUE One percent lidocaine used to anesthetize the right anterior aspect of the wrist. The right radial artery was accessed via the Seldinger technique. A 6 Czech sheath was placed in the right radial artery. 2.5 mg of Verapamil, 800 mcg of nitroglycerin, 1mg Lidocaine and 5000 U Heparin were given through the arterial sheath. The papa catheter was also used to perform left heart catheterization, left ventriculogram and selective coronary angiogram. At the end the diagnostic angiogram therapeutic heparin was administered giving a therapeutic ACT and a Choice PT extra-support wire was placed down the LAD. A 3.5 x 22 mm [place] frontier stent was deployed at 20 jeanna reducing the stenosis to 0%. Following this intravascular ultrasound probe was advanced to determine if appropriate sizing occurred. There is excellent apposition and expansion of the stent. Following this the wire was placed down the circumflex artery where a 3.5 x 30 mm [place] frontier stent was deployed at 20 jeanna reducing the stenosis to 0%. LARRY-3 flow was present down the LAD and circumflex artery before and after the procedure. At the end the procedure the apparatus was removed the sheath was removed hemostasis was achieved using TR banding patient was transferred to the postop holding in stable condition ANGIOGRAPHIC RESULTS The left main artery Normal The left anterior descending artery Has a proximal 60 to 70% stenosis followed by 10 to 20% mid vessel stenoses The circumflex artery Is co-dominant and has a proximal 60 to 70% eccentric stenosis. The right coronary artery Is codominant and has mid vessel calcified 30% stenoses with distal 20 and 30% stenoses The STINSON ventriculogram reveals Normal 60% The left ventricular end-diastolic pressure 20 mmHg IMPRESSION Severe two-vessel coronary disease as described above Successful stenting the proximal LAD and proximal codominant circumflex artery severe hemodynamic disease reduced to 0% with 1 drug-eluting stent in each vessel Normal ejection fraction Elevated LVEDP PLAN 1. Brilinta and aspirin 2. LDL less than 55 to be achieved with high intensity statin 3. Avoidance of tobacco products 4. Risk factor modification 5. Cardiac rehabilitation Electronically signed by : Efrain Murphy MD 03/05/2023 12:18:12
[2023-03-03 11:15] LABS: Basophils # 0.1 K/mm3 (0-0.2); Basophils % 0.6 % (0.1-2.0); Eosinophils # 0.4 K/mm3 (0.0-0.4); Eosinophils % 6.1 % (0.1-12.0); Hematocrit 49.8 % (42.0-52.0); Lymphocytes # 2.3 K/mm3 (0.7-4.5); Lymphocytes % 31.2 % (10-50); Mean Corpuscular HGB Conc 32.1 g/dL (31.8-35.4); Mean Corpuscular Hemoglobin 35.6 pg (27.0-31.2); Mean Platelet Volume 8.8 fl (7.4-10.4); Monocytes # 0.5 K/mm3 (0.1-1.0); Monocytes % 6.8 % (1.7-9.3); Neutrophils % 55.3 % (37.0-80.0); Platelet Count 161 K/mm3 (142-424); Red Blood Count 4.48 M/mm3 (4.60-6.20); Red Cell Distribution Width 12.9 % (11.5-17.5); White Blood Count 7.2 K/mm3 (4.8-10.8)
[2023-03-03 11:28] LABS: Blood Urea Nitrogen 17 mg/dl (9-20); Chloride 109 mmol/L (98-107); Creatinine Clearance Estimated 102 mL/min (50-200); Estimated Glomerular Filt Rate 78 ml/min (>60); GFR (African American) 94 ML/MIN (>60); Glucose 110 mg/dl (74-100); Sodium 137 mmol/L (136-145)
[2023-03-03 11:44] LABS: Calcium 8.2 mg/dl (8.4-10.2); Carbon Dioxide 25 mmol/L (22.0-30.0)
[2023-03-03] MEDS: diphenhydrAMINE 50MG/ML VIAL 50 MG IV (12:44)
[2023-03-03] MEDS: VERAPAMIL 2.5MG/ML 2ML VIAL 2.5 MG IV (12:44)
[2023-03-03] MEDS: 0.9 % SODIUM CHLORIDE 500 ML 25 ML IV (12:45)
[2023-03-03] MEDS: NITROGLYCERIN 800MCG/8ML SYR (CATH LAB) 800 MCG IA (12:45)
[2023-03-03] MEDS: HEPARIN 1,000 UNITS/ML 10ML VIAL (CATH LAB) 10000 UNIT IV ×2 (12:45→13:06)
[2023-03-03] MEDS: HEPARIN 1,000 UNITS/500ML NS (CATH LAB) 3000 UNIT IV (12:45)
[2023-03-03] MEDS: MIDAZOLAM HCL 1MG/1ML 5ML VIAL 1 MG IV (13:07)
[2023-03-03] MEDS: FENTANYL 100MCG/2ML VIAL 50 MCG IV (13:07)
[2023-03-03 13:46] LABS: CATHL Activated Clotting Time > 400 SEC (74-125)
[2023-03-03] MEDS: IOPAMIDOL-370 (76%);100ML BOTTLE 180 ML IV (13:49)
== END 2023-03-03 15:56 | disposition home or self-care (01) ==
PROVIDERS: PCP Family Medicine; Visit Provider Internal Medicine
DX: I25.10 Atherosclerotic heart disease of native coronary artery without angina pectoris (principal); I10 Essential (primary) hypertension; F17.210 Nicotine dependence, cigarettes, uncomplicated; I25.2 Old myocardial infarction; Z79.899 Other long term (current) drug therapy; F10.10 Alcohol abuse, uncomplicated; R94.30 Abnormal result of cardiovascular function study, unspecified; E78.5 Hyperlipidemia, unspecified
CPT/HCPCS: 36415; 80048; 85025; 85347; 92928; 92978; 93458; 99152; 99153; C1725; C1760; C1769; C1874; C1876; C9600; J1644; Q9967

== ENCOUNTER 2023-03-10 11:41 | Outpatient (CLI) | payer BC, SELFPAY ==
[2023-03-10 12:13] LABS: Basophils # 0.1 K/mm3 (0-0.2); Basophils % 0.8 % (0.1-2.0); Eosinophils # 0.5 K/mm3 (0.0-0.4); Eosinophils % 6.8 % (0.1-12.0); Hematocrit 49.2 % (42.0-52.0); Hemoglobin 16.2 g/dL (14.1-18.0); Lymphocytes # 2.6 K/mm3 (0.7-4.5); Lymphocytes % 33.7 % (10-50); Mean Corpuscular Hemoglobin 35.2 pg (27.0-31.2); Mean Corpuscular Volume 106.8 fl (80-94); Mean Platelet Volume 8.4 fl (7.4-10.4); Monocytes # 0.5 K/mm3 (0.1-1.0); Monocytes % 6.8 % (1.7-9.3); Platelet Count 160 K/mm3 (142-424); Red Blood Count 4.61 M/mm3 (4.60-6.20); Red Cell Distribution Width 12.6 % (11.5-17.5); White Blood Count 7.6 K/mm3 (4.8-10.8)
[2023-03-10 12:40] LABS: Alanine Aminotransferase 44 U/L (12-78); Alkaline Phosphatase 103 U/L (38-126); Anion Gap 8.5 mEq/L (5-15); Aspartate Amino Transferase 49 U/L (17-59); Bilirubin,Direct 0.1 mg/dl (0.0-0.4); Bilirubin,Indirect 0.6 mg/dL (0.0-0.9); Bilirubin,Total 0.7 mg/dl (0.2-1.3); Bilirubin,Unconjugated 0.6 mg/dL (0.0-1.1); Blood Urea Nitrogen 11 mg/dl (9-20); Calcium 8.5 mg/dl (8.4-10.2); Carbon Dioxide 26 mmol/L (22.0-30.0); Chloride 107 mmol/L (98-107); Chol/HDL Ratio 4.6 (1-3.5); Cholesterol 132 mg/dl (140-200); Estimated Glomerular Filt Rate 100 ml/min (>60); GFR (African American) 121 ML/MIN (>60); Glucose 110 mg/dl (74-100); HDL Cholesterol 29 mg/dl (40-60); Potassium 4.5 mmoL/L (3.5-5.1); Sodium 137 mmol/L (136-145); Triglycerides 131 mg/dl (30-150); VLDL Cholesterol 26 mg/dL (0-40)
[2023-03-10 12:50] LABS: Albumin Level 3.8 g/dl (3.5-5.0); Total Protein,Serum 6.6 g/dl (6.3-8.2)
[2023-03-10 12:59] LABS: Direct LDL Cholesterol 80.77 mg/dL (100-129)
[2023-03-10 13:02] LABS: Free T4 (Free Thyroxine) 0.85 ng/dl (0.78-2.19)
[2023-03-10 13:11] LABS: Thyroid Stimulating Hormone 4.75 uIU/mL (0.465-4.68)
== END 2023-03-10 23:59 ==
LOC: LAB 11:42
PROVIDERS: PCP Family Medicine; Visit Provider Physician Assistant
DX: E78.5 Hyperlipidemia, unspecified (principal); I11.9 Hypertensive heart disease without heart failure; I25.10 Atherosclerotic heart disease of native coronary artery without angina pectoris; I21.4 Non-ST elevation (NSTEMI) myocardial infarction; Z95.5 Presence of coronary angioplasty implant and graft; F10.10 Alcohol abuse, uncomplicated; F17.200 Nicotine dependence, unspecified, uncomplicated
CPT/HCPCS: 36415; 80048; 80061; 80076; 83735; 84439; 84443; 85025

== ENCOUNTER 2023-10-14 09:24 | Outpatient (CLI) | payer BC, SELFPAY ==
[2023-10-14 09:50] LABS: Basophils # 0.1 K/mm3 (0-0.2); Basophils % 0.8 % (0.1-2.0); Eosinophils # 0.4 K/mm3 (0.0-0.4); Eosinophils % 6.8 % (0.1-12.0); Hematocrit 45.8 % (42.0-52.0); Lymphocytes # 2.1 K/mm3 (0.7-4.5); Lymphocytes % 34.2 % (10-50); Mean Corpuscular HGB Conc 32.7 g/dL (31.8-35.4); Mean Corpuscular Hemoglobin 33.5 pg (27.0-31.2); Mean Corpuscular Volume 102.4 fl (80-94); Mean Platelet Volume 8.5 fl (7.4-10.4); Monocytes # 0.4 K/mm3 (0.1-1.0); Monocytes % 6.2 % (1.7-9.3); Neutrophils # 3.1 K/mm3 (1.8-7.8); Platelet Count 169 K/mm3 (142-424); Red Blood Count 4.47 M/mm3 (4.60-6.20); Red Cell Distribution Width 13.5 % (11.5-17.5)
[2023-10-14 10:09] LABS: Alanine Aminotransferase 44 U/L (12-78); Albumin Level 3.9 g/dl (3.5-5.0); Alkaline Phosphatase 94 U/L (38-126); Anion Gap 11.4 mEq/L (5-15); Aspartate Amino Transferase 46 U/L (17-59); Bilirubin,Indirect 0.5 mg/dL (0.0-0.9); Bilirubin,Total 0.5 mg/dl (0.2-1.3); Bilirubin,Unconjugated 0.6 mg/dL (0.0-1.1); Blood Urea Nitrogen 17 mg/dl (9-20); Carbon Dioxide 22 mmol/L (22.0-30.0); Chloride 109 mmol/L (98-107); Chol/HDL Ratio 2.6 (1-3.5); Cholesterol 119 mg/dl (140-200); Estimated Glomerular Filt Rate 87 ml/min (>60); GFR (African American) 106 ML/MIN (>60); Glucose 151 mg/dl (74-100); HDL Cholesterol 46 mg/dl (40-60); Magnesium 1.9 mg/dl (1.6-2.3); Potassium 4.4 mmoL/L (3.5-5.1); Sodium 138 mmol/L (136-145); Total Protein,Serum 6.8 g/dl (6.3-8.2); Triglycerides 63 mg/dl (30-150); VLDL Cholesterol 13 mg/dL (0-40)
[2023-10-14 10:20] LABS: Direct LDL Cholesterol 54.76 mg/dL (100-129)
[2023-10-14 10:25] LABS: Free T4 (Free Thyroxine) 0.94 ng/dl (0.78-2.19)
[2023-10-14 10:40] LABS: Thyroid Stimulating Hormone 2.59 uIU/mL (0.465-4.68)
== END 2023-10-14 23:59 | disposition home or self-care (01) ==
LOC: LAB 09:26
PROVIDERS: PCP Family Medicine; Visit Provider Nurse Practitioner
DX: I25.118 Atherosclerotic heart disease of native coronary artery with other forms of angina pectoris (principal); E78.2 Mixed hyperlipidemia; Z95.5 Presence of coronary angioplasty implant and graft; I10 Essential (primary) hypertension
CPT/HCPCS: 36415; 80048; 80061; 80076; 83735; 84439; 84443; 85025

== ENCOUNTER 2024-04-19 09:19 | Outpatient (CLI) | payer BC, SELFPAY ==
[2024-04-19 09:54] LABS: Basophils # 0.1 K/mm3 (0-0.2); Basophils % 0.9 % (0.1-2.0); Eosinophils # 0.4 K/mm3 (0.0-0.4); Eosinophils % 6.4 % (0.1-12.0); Hemoglobin 15.3 g/dL (14.1-18.0); Lymphocytes % 33.7 % (10-50); Mean Corpuscular Hemoglobin 33.1 pg (27.0-31.2); Mean Corpuscular Volume 97.4 fl (80-94); Mean Platelet Volume 9.9 fl (7.4-10.4); Monocytes # 0.5 K/mm3 (0.1-1.0); Monocytes % 8.8 % (1.7-9.3); Neutrophils # 2.9 K/mm3 (1.8-7.8); Platelet Count 154 K/mm3 (142-424); Red Blood Count 4.62 M/mm3 (4.60-6.20); Red Cell Distribution Width 12.6 % (11.5-17.5); White Blood Count 5.8 K/mm3 (4.8-10.8)
[2024-04-19 10:26] LABS: Alanine Aminotransferase 56 U/L (12-78); Albumin Level 4.3 g/dl (3.5-5.0); Alkaline Phosphatase 68 U/L (38-126); Anion Gap 9.7 mEq/L (5-15); Aspartate Amino Transferase 50 U/L (17-59); Bilirubin,Direct 0.3 mg/dl (0.0-0.4); Bilirubin,Indirect 0.5 mg/dL (0.0-0.9); Bilirubin,Total 0.8 mg/dl (0.2-1.3); Bilirubin,Unconjugated 0.5 mg/dL (0.0-1.1); Blood Urea Nitrogen 15 mg/dl (9-20); Carbon Dioxide 25 mmol/L (22.0-30.0); Chloride 108 mmol/L (98-107); Chol/HDL Ratio 2.6 (1-3.5); Cholesterol 111 mg/dl (140-200); Estimated Glomerular Filt Rate 87 ml/min (>60); GFR (African American) 106 ML/MIN (>60); Glucose 150 mg/dl (74-100); HDL Cholesterol 42 mg/dl (40-60); Magnesium 1.8 mg/dl (1.6-2.3); Potassium 4.7 mmoL/L (3.5-5.1); Sodium 138 mmol/L (136-145); Total Protein,Serum 6.6 g/dl (6.3-8.2); Triglycerides 90 mg/dl (30-150); VLDL Cholesterol 18 mg/dL (0-40)
[2024-04-19 10:37] LABS: Direct LDL Cholesterol 48.12 mg/dL (100-129)
[2024-04-19 10:44] LABS: Free T4 (Free Thyroxine) 0.75 ng/dl (0.78-2.19)
[2024-04-19 10:56] LABS: Thyroid Stimulating Hormone 2.01 uIU/mL (0.465-4.68)
[2024-04-19 12:14] LABS: Hemoglobin A1C 6.4 % (4.0-6.0)
== END 2024-04-19 23:59 | disposition home or self-care (01) ==
LOC: LAB 09:20
PROVIDERS: PCP Emergency Medicine; Visit Provider Nurse Practitioner
DX: E78.2 Mixed hyperlipidemia (principal); I10 Essential (primary) hypertension; I25.118 Atherosclerotic heart disease of native coronary artery with other forms of angina pectoris; Z95.5 Presence of coronary angioplasty implant and graft
CPT/HCPCS: 36415; 80048; 80061; 80076; 83036; 83735; 84439; 84443; 85025

== ENCOUNTER 2025-02-27 09:09 | Outpatient (CLI) | payer BC, SELFPAY ==
--- OUTSIDE RECORDS SUMMARY | 2025-02-27 09:22 | XMS_ITS | Clinical Summary ---
Author Organization [facility] Address [address] [place] [address] Care Team Providers Care Public Health Outreach Worker Name Role Phone Param Kearney MD Primary Care Provider [phone] Allergies No known active allergies Medications aspirin 81 MG chewable tablet Chew 1 tablet Daily. Active atorvastatin (LIPITOR) 40 MG tablet TAKE 1 TABLET BY MOUTH AT BEDTIME NIGHTLY Active losartan (COZAAR) 100 MG tablet Take 1 tablet by mouth Daily. Active metoprolol succinate XL (TOPROL-XL) 25 MG 24 hr tablet Take 1 tablet by mouth Daily. Active tadalafil (CIALIS) 5 MG tablet Take 1 tablet by mouth Daily. Active Brilinta 90 MG tablet tablet Take 1 tablet by mouth 2 (Two) Times a Day. Active gabapentin (NEURONTIN) 300 MG capsuleIndication s:Lumbar radiculopathy Take 1 capsule by mouth Take As Directed. 1 tab in the morning, 1 in the evening, 2 tabs at night 120 capsule 1 4 Active Additional Information Patient not taking.Reported on 10/19/2023 diclofenac (VOLTAREN) 75 MG EC tablet 1 tablet. 3 Active tamsulosin (FLOMAX) 0.4 MG capsule 24 hr capsule Take 1 capsule by mouth Daily. 4 Active Active Problems Problem Noted Date Diagnosed Date Lumbar stenosis with neurogenic claudication Spondylosis of lumbar region without myelopathy or radiculopathy 06/25/2023 Lumbar radiculopathy 06/25/2023 Degeneration of lumbar or lumbosacral interverte bral disc 06/25/2023 Chronic anticoagulation 06/25/2023 History of coronary artery stent placement 06/24 Social History Tobacco Use Types Packs/Day Years Used Date Smoking Tobacco: Former Cigarettes Smokeless Tobacco: Never Tobacco Cessation:Counseling Given: Not Answered Alcohol Use Standard Drinks/Week Comments Not Currently 0 (1 standard drink = 0.6 oz pur e alcohol) Abuse Screen Answer Date Recorded Unsafe at Home or Work/School Not on file Feels Threatened by Someone? Not on file 10/2022 Does Anyone Keep You from Co ntacting Others or Doint Things Outside the Home? Not on file 12/08/2022 Physical Sign of Abuse Present Not on file 1 Housing Stability Answer Date Recorded Current Living Arrangements Not on file 10/2022 Potentially Unsafe Housing Conditions Not on vivian e 12/08/2022 Family and Community Support Answer Bryan e Recorded Help with Day-to-Day Activities Not on file 12/08/2022 Lonely or Isolated Not on file 12/08/2022 Employment Answer Date Recorded Do you want help finding or keeping work or a alex b? Not on file 12/08/2022 Disabilities Answer Date Recorded Concentrating, Remembering, or Making Decisions Difficulty Not on file 12/08/2022 Doing Errands Independently Difficulty Not on fi le 12/08/2022 Education Answer Date Recorded Help with school or training? Not on file Preferred Language Not on file 12/08/2022 PHQ-2 Answer Date Recorded Retired PHQ-9: Brief Depression Severity Measure Score 0 06/25/2023 Sex and Gender Information Value Date Recorded Sex Assigned at Not on file Legal Sex Male 12:13 PM EDT Gender Identity Not on file Sexual Orientation Not on file Last Filed Vital Signs Vital Sign Reading Time Taken Comments Blood Pressure - - Pulse 79 10/19/2023 8:12 AM EDT Temperature 36.7 C (98 F) 06/05/2023 9:09 AM EDT Respiratory Rate - - Oxygen Saturation 99% 10/19/2023 8:12 AM EDT Inhaled Oxygen Concentration - - Weight 93.4 kg (206 lb) 10/19/2023 8:12 AM EDT Height 170.2 cm (5' 7 ) 10/19/2023 8:12 AM EDT Body Mass Index 32.26 10/19/2023 8:12 AM EDT Plan of Treatment Health Maintenance Due Date Last Done Comments COLON CANCER SCREENING 5 YEAR SIGMOIDOSCOPY 09/17/2012 COLONOSCOPY 09/17/2012 CT COLONOGRAPHY 09/17/2012 FECAL OCCULT BLOOD TEST 09/17/2012 FIT Testing (1 year) 09/17/2012 Pneumococcal Vaccine 50+ (1 of 1 - PCV) 09/17/2017 ZOSTER VACCINE (1 of 2) 09/17/2017 ANNUAL PHYSICAL 05/15/2023 HEPATITIS C SCREENING 05/15/2023 COLOGUARD 06/27/2023 06/26/2020 COLORECTAL CANCER SCREENING 06/27/2023 TDAP/TD VACCINES (2 - Td or Tdap) 04/05/2024 015 INFLUENZA VACCINE 09/30/[address] [id number] [facility] PPO Member Subscriber Plan / Payer (Ef fective 2021-Present) Name:Casimiro Chavez Relation to Subscriber:Self Name:Casimiro Chavez Payer ID:[id number] (NAIC) Type:Not on file Address: [facility] [id number] [place] [id number] Care Teams Public Health Outreach Worker Relationship Specialty Start Date End Date Param Kearney MD [address] [place] [id number] PCP - General Family Medicine 05/06/23
[2025-02-27 09:42] LABS: Hematocrit 44.1 % (42.0-52.0); Hemoglobin 14.9 g/dL (14.1-18.0); Immature Granulocytes % 0.2 %; Mean Corpuscular HGB Conc 33.8 g/dL (31.8-35.4); Mean Corpuscular Hemoglobin 32.7 pg (27.0-31.2); Mean Corpuscular Volume 96.7 fl (80-94); Nucleated Red Blood Cells % 0 %; Platelet Count 146 K/mm3 (142-424); Red Blood Count 4.56 M/mm3 (4.60-6.20); Red Cell Distribution Width-SD 44.5 fL; White Blood Count 6.0 K/mm3 (4.8-10.8)
[2025-02-27 10:06] LABS: Albumin Level 4.3 g/dl (3.5-5.0); Chloride 107 mmol/L (98-107); Potassium 4.1 mmoL/L (3.5-5.1); Sodium 139 mmol/L (136-145)
[2025-02-27 10:08] LABS: Blood Urea Nitrogen 15 mg/dl (9-20); Creatinine,Serum 1.00 mg/dl (0.66-1.25); Estimated Glomerular Filt Rate 77 ml/min (>60); GFR (African American) 93 ML/MIN (>60)
[2025-02-27 10:09] LABS: Alanine Aminotransferase 41 U/L (12-78); Alkaline Phosphatase 87 U/L (38-126); Anion Gap 11.1 mEq/L (5-15); Aspartate Amino Transferase 41 U/L (17-59); Bilirubin,Direct 0.1 mg/dl (0.0-0.4); Bilirubin,Indirect 0.6 mg/dL (0.0-0.9); Bilirubin,Total 0.7 mg/dl (0.2-1.3); Bilirubin,Unconjugated 0.7 mg/dL (0.0-1.1); Calcium 9.4 mg/dl (8.4-10.2); Carbon Dioxide 25 mmol/L (22.0-30.0); Cholesterol 108 mg/dl (140-200); Glucose 153 mg/dl (74-100); HDL Cholesterol 47 mg/dl (40-60); Magnesium 2.1 mg/dl (1.6-2.3); Total Protein,Serum 7.0 g/dl (6.3-8.2); Triglycerides 87 mg/dl (30-150)
[2025-02-27 10:16] LABS: Hemoglobin A1C 7.4 % (4.0-6.0)
[2025-02-27 10:28] LABS: Free T4 (Free Thyroxine) 0.86 ng/dl (0.78-2.19)
[2025-02-27 10:40] LABS: Thyroid Stimulating Hormone 2.33 uIU/mL (0.465-4.68)
== END 2025-02-27 23:59 | disposition home or self-care (01) ==
LOC: LAB 09:10
PROVIDERS: PCP Emergency Medicine; Visit Provider Nurse Practitioner
DX: I25.118 Atherosclerotic heart disease of native coronary artery with other forms of angina pectoris (principal); Z02.4 Encounter for examination for driving license; I10 Essential (primary) hypertension; E78.2 Mixed hyperlipidemia; E11.9 Type 2 diabetes mellitus without complications
CPT/HCPCS: 36415; 80048; 80061; 80076; 83036; 83735; 84439; 84443; 85025

== ENCOUNTER 2025-02-27 14:29 | Outpatient (CLI) | payer BC, SELFPAY ==
--- NOTE | 2025-02-27 14:30 | CA_ITS ---
APPROVED REPORT EXAM: Comprehensive 2D, Doppler, and color-flow Echocardiogram Civil Clerk: Eileen Martínez RDCS Ht: 5 ft 7 in Wt: 230lbs BSA: 2.15 BP: 135/81 mmHg Indications: CAD M-Mode Dimensions RVDd 2.22 cm (0.9-2.6) LA Diam 4.60 cm (1.9-4.0) LVDd 5.56 cm (3.5-5.7) LVDs 3.91 cm (3.5-5.7) IVSd 0.68 cm (0.6-1.1) PWd 0.85 cm (0.6-1.1) EF (Teich) 56.20% FS 29.70% EDV (Teich) 151.20 mL TAPSE 2.54 (<1.7) ESV (Teich) 66.30 mL LV Diastology E Decel Time 183 (160-240 msec) E/A Ratio 1.0 Mitral Valve MV E Max Kerwin. 70.0 (40-130 cm/s) MV A Velocity 67.0 (40-130 cm/s) E/A Ratio 1.05 MV PHT 54.0 ms Left Ventricle The left ventricle is normal size. Left ventricular systolic function is normal. The left ventricular ejection fraction is within the normal range. There is normal left ventricular wall thickness. There is normal LV segmental wall motion. The left ventricular diastolic function is normal. LVEF is 55% Right Ventricle The right ventricle is mildly dilated. The right ventricular systolic function is mildly reduced. Atria The left atrium size is normal. The right atrium size is normal. There is no color Doppler evidence of interatrial shunt. Aortic Valve The aortic valve is mildly thickened. There is no hemodynamically significant aortic valvular stenosis. No aortic regurgitation is present. Mitral Valve The mitral valve is normal in structure. No evidence of mitral valve stenosis. Mild mitral regurgitation is present. Tricuspid Valve The tricuspid valve leaflets are thin and pliable. Trace tricuspid regurgitation. There is insufficient TR jet to estimate RVSP. Pulmonic Valve The pulmonary valve is grossly normal in structure. Trace pulmonic valve regurgitation is present. Great Vessels The aortic root is normal in size. IVC is normal in size and collapses >50% with inspiration. Pericardium There is no pericardial effusion. Other Information Study Quality: Technically Difficult Conclusion Normal LV systolic function. Mild RV dilation with mild reduction in RV function. Mild MR. Electronically signed by : Kita Terrazas MD 03/06/2025 01:15:45
--- OUTSIDE RECORDS SUMMARY | 2025-02-27 14:36 | XMS_ITS | Clinical Summary ---
Author Organization [facility] Address [address] [place] [address] Care Team Providers Care Sagger Maker Name Role Phone Param Kearney MD Primary Care Provider [phone] Allergies No known active allergies Medications aspirin [...] 015 INFLUENZA VACCINE 09/30/2024 Insurance LOLY URIAS [id number] [facility] PPO Member Subscriber Plan / Payer (Ef fective 2021-Present) Name:Casimiro Chavez Relation to Subscriber:Self Name:Casimiro Chavez Payer ID:[id number] (NAIC) Type:Not on file Address: [facility] [id number] [place] [id number] Care Teams Sagger Maker Relationship Specialty Start Date End Date Param Kearney MD [address] [place] [id number] PCP - General Family Medicine 05/06/23
== END 2025-02-27 23:59 | disposition home or self-care (01) ==
LOC: RT 14:31
PROVIDERS: PCP Emergency Medicine; Visit Provider Nurse Practitioner
DX: I34.0 Nonrheumatic mitral (valve) insufficiency (principal); I11.9 Hypertensive heart disease without heart failure; I25.118 Atherosclerotic heart disease of native coronary artery with other forms of angina pectoris; E78.2 Mixed hyperlipidemia; E11.9 Type 2 diabetes mellitus without complications; Z02.4 Encounter for examination for driving license
CPT/HCPCS: 93306